=== PATIENT | male | born 1985 | race Caucasian/White ===

== ENCOUNTER 2017-09-26 21:28 | Emergency (ER) | payer SELFPAY ==
[~2017-09-26] VITALS: Ht 177.8 cm; Wt 70.0 kg
[2017-09-26 21:32] VITALS: BP 124/60; PULSE 86; RESP 18; TEMP 97.7; O2SAT 98
[2017-09-27] MEDS ORDERED: DOXY1TAB6 PO (00:04)
--- NOTE | 2017-09-27 00:09 | PD ---
HPI Chief Complaint: Abdominal Pain Time Seen by Provider: 23:31 Travel History International Travel<30 days: No Contact w/Intl Traveler<30days: No Traveled to known affect area: No History of Present Illness HPI This patient complains of right testicle pain. Duration 1 month. Is been worse the last couple of days. No injury. Left side is fine. Severity is moderate. No alleviating factors PFSH Past Medical History Medical History: Denies Significant Hx Diminished Hearing: No Tetanus Vaccination: Unknown Influenza Vaccination: No Past Surgical History Surgical History: No Previous Surgery Social History Alcohol Use: No Tobacco Use: No Substance Use: No Allergies-Medications (Allergen,Severity, Reaction): Coded Allergies: Penicillins (Verified Allergy, Severe, 09/26/17) hives gentamicin (Verified Allergy, Severe, 09/26/17) hives and get really hot Reported Meds & Prescriptions Reported Meds & Active Scripts Active Doxycycline Hyclate DR (Doxycycline Hyclate) 100 Mg Tab 100 Mg PO BID Review of Systems General / Constitutional: No: Fever HENT: No: Headaches Cardiovascular: No: Chest Pain or Discomfort Respiratory: No: Cough Gastrointestinal: No: Abdominal Pain Physical Exam Narrative GASTROINTESTINAL: Abdomen soft, non-tender, nondistended. Positive bowel sounds. No hepato-splenomegaly, or palpable masses. No guarding. SKIN: Focused skin assessment reveals no rash or ulcers. Skin is warm and dry. Palpation shows no induration or nodules. : Circumcised penis without lesions. Left testicle nontender. Epididymis seems tender on the right side. Right testicle is freely mobile. There is no redness or warmth. No swelling. There is an inguinal lymph node on the right side Data Data Last Documented VS Vital Signs Date Time Temp Pulse Resp B/P (MAP) Pulse Ox O2 Delivery O2 Flow Rate FiO2 09/26/17 21:32 97.7 86 18 124/60 (81) 98 MDM Medical Decision Making Medical Screen Exam Complete: Yes Emergency Medical Condition: Yes Medical Record Reviewed: Yes Differential Diagnosis Epididymitis, torsion, hydrocele Narrative Course I have reviewed the patient's electronic medical record. Presentation here seems most consistent with right-sided epididymitis. He is less than 35 so I will initiate doxycycline therapy for 10 days He declines pain medication I am ruling out torsion on a clinical basis. He does not require emergent ultrasound Diagnosis Primary Impression: Epididymitis, right Additional Instructions: Follow-up with urology Med/Other Pt SpecificInfo: Prescription(s) given Scripts Doxycycline Hyclate DR (Doxycycline Hyclate DR) 100 Mg Tab 100 MG PO BID for Infection, #20 TAB 0 Refills Prov: Karlo Kelly MD 09/27/17 Disposition: 01 DISCHARGE HOME Condition: Stable Karlo Kelly MD September 27, 2017 00:09
== END 2017-09-27 00:41 | disposition home or self-care (01) ==
LOC: NEPD 21:28
DX: N45.1 Epididymitis (principal)
CPT/HCPCS: 99283